=== PATIENT | male | born 1935 ===

== ENCOUNTER 2021-06-18 06:24 | Outpatient (CLI) | payer SELFPAY | END 2021-06-18 06:25 | disposition EMS.NT | LOC: EMS 06:24 | DX: S51.012A Laceration without foreign body of left elbow, initial encounter (principal); W18.30XA Fall on same level, unspecified, initial encounter; Y93.89 Activity, other specified; Y92.009 Unspecified place in unspecified non-institutional (private) residence as the place of occurrence of the external cause ==

== ENCOUNTER 2021-09-18 22:16 | Outpatient (CLI) | payer SELFPAY | END 2021-09-18 22:17 | disposition EMS.NT | LOC: EMS 22:16 | DX: Z03.89 Encounter for observation for other suspected diseases and conditions ruled out (principal) ==